=== PATIENT | male | born 1975 | race Caucasian/White ===

== ENCOUNTER 2024-06-06 17:02 | Emergency (ER) | payer OTHER ==
[~2024-06-06] VITALS: Ht 180.3 cm; Wt 109.5 kg
[2024-06-06 17:44] LABS: BASO # 0.04 K/mm3 (0.02-0.10); EOS # 0.32 K/mm3 (0.04-0.40); EOS % 2.9 % (0.0-4.0); HEMATOCRIT 51.1 % (42.0-52.0); HEMOGLOBIN 17.2 g/dL (13.5-18.0); LYMPH# 2.91 K/mm3 (1.50-4.00); MEAN CELL VOLUME 91 fl (78-100); MEAN CORPUSCULAR HEMOGLOBIN 31 pg (27-31); MEAN CORPUSCULAR HGB CONC 34 g/dL (33-37); MEAN PLATELET VOLUME 10.9 fl (7.4-10.4); MONO # 0.69 K/mm3 (0.20-0.80); PLATELET COUNT 413 K/mm3 (130-400); RED BLOOD COUNT 5.62 M/mm3 (4.20-5.60); RED CELL DISTRIBUTION WIDTH 13.2 % (11.5-14.5); WHITE BLOOD COUNT 10.9 K/mm3 (4.8-10.8)
[2024-06-06 17:55] LABS: SODIUM 139 mmol/L (136-145)
[2024-06-06 17:56] LABS: CALCIUM 9.9 mg/dL (8.3-10.5)
[2024-06-06 17:57] LABS: ALBUMIN 4.5 g/dL (3.5-5.0)
[2024-06-06 17:58] LABS: TOTAL PROTEIN 7.4 g/dL (6.4-8.3)
[2024-06-06 17:59] LABS: GLUCOSE 85 mg/dL (75-110); TOTAL BILIRUBIN 1.3 mg/dL (0.2-1.2)
[2024-06-06 18:00] LABS: CARBON DIOXIDE 25 mmol/L (22-29)
[2024-06-06 18:01] LABS: ALCOHOL IN-HOUSE < 10 mg/dL (<10)
[2024-06-06 18:03] LABS: ACETAMINOPHEN < 1.0 ug/mL (< 10.0); AST-SGOT 29 U/L (5-34)
[2024-06-06 18:06] LABS: ALT/SGPT 56 U/L (0-55)
[2024-06-06 18:14] LABS: TROPONIN-I < 0.030 ng/mL (0.00-0.033)
[2024-06-06] MEDS ORDERED: dexAMETHasone 4 MG TAB PO ONE ×2 (18:45→22:15)
[2024-06-06 23:00] VITALS: BP 141/102
[2024-06-07] VITALS (11 sets, daily range): BP systolic 125–160; BP diastolic 83–98
[2024-06-07] MEDS ORDERED: Nicotine 21 MG DAILY PATCH TD SCH (14:55)
[2024-06-08 15:02] VITALS: BP 142/89
[2024-06-08 16:20] VITALS: BP 142/89
== END 2024-06-08 14:20 ==
LOC: ED 17:02
PROVIDERS: Physician Assistant
DX: T58.92XA Toxic effect of carbon monoxide from unspecified source, intentional self-harm, initial encounter (principal); F19.10 Other psychoactive substance abuse, uncomplicated